=== PATIENT | male | born 1945 | race Caucasian/White ===

== ENCOUNTER 2022-02-17 04:18 | Inpatient (IN) | payer MEDICARE, OTHER ==
[2022-02-17] MEDS ORDERED: Boostrix 0.5 ML (Tdap) VIAL ONE (04:28)
[2022-02-17] MEDS ORDERED: CEFAZOLIN 1 GM VIAL ONE (04:28)
[2022-02-17] MEDS ORDERED: CEFAZOLIN 2 GM VIAL ONE (04:35)
[2022-02-17 06:01] LABS: #Basophils 0.1 thou/uL (0.0-0.2); #Eosinphils 0.2 thou/uL (0.0-0.7); #Lymphocytes 2.3 thou/uL (1.20-3.40); #Monocytes 1.3 thou/uL (0.11-0.59); #Neutrophils 8.5 thou/uL (1.40-6.50); %Basophils 0.8 % (0.0-1.0); %Eosinophils 1.7 % (0.0-10.0); %Lymphocytes 18.5 % (21.0-51.0); %Monocytes 10.4 % (0.0-10.0); %Neutrophils 68.6 % (42.0-75.0); Mean Corpuscular HGB CONC 31.2 g/dL (32.0-36.0); Mean Corpuscular Hemoglobin 32.7 pg (27.0-31.0); Mean Platelet Volume 9.6 fL (7.4-10.4); Platelet Count 232 thou/uL (130-400); RBC Distribution Width 16.8 % (11.5-14.5); Red Blood Cell (RBC) Count 5.18 mill/uL (4.70-6.10); White Blood Cell (WBC) Count 12.4 thou/uL (4.8-10.8)
[2022-02-17] MEDS ORDERED: Vancomycin 1 GM/200 ML BAG ONE (06:08)
[2022-02-17 06:10] LABS: INR-International Normal Ratio 1.3; Prothrombin Time 16.1 sec (12.0-14.7)
[2022-02-17] MEDS ORDERED: Ondansetron ODT 4 MG TAB PO PRN (06:10)
[2022-02-17] MEDS ORDERED: Dextrose 50% Abboject 50 ML SYRINGE SLOW IVP PRN (06:10)
[2022-02-17] MEDS ORDERED: Ondansetron PF 4 MG/2 ML Vial IVP PRN (06:10)
[2022-02-17] MEDS ORDERED: Dextrose 5% in Water 1,000 ML IV PRN (06:10)
[2022-02-17 06:11] LABS: PTT 30.3 sec (22.9-36.1)
[2022-02-17 06:27] LABS: Acetaminophen Less than 10.0 mcg/mL (10.0-30.0); Alcohol Less than 10 mg/dL (Less than 10); CK (CPK) 23 U/L (30-200); Salicylate Less than 8.0 mg/dL (15.0-30.0)
[2022-02-17 06:35] LABS: ALT (SGPT) 43 U/L (8-55); AST (SGOT) 66 U/L (5-34); Albumin 1.9 g/dL (3.4-4.8); Alkaline Phosphatase 760 U/L (40-110); Anion Gap 19 mmol/L (10-20); BUN (Urea Nitrogen) 55 mg/dL (8.4-25.7); Bilirubin, Total 1.7 mg/dL (0.2-1.2); Calc. Creatinine Clearance 0 mL/min (70-130); Calcium 8.4 mg/dL (7.8-10.44); Carbon Dioxide 15 mmol/L (23-31); Chloride 104 mmol/L (98-107); Estimated GFR 31; Globulin 2.3 g/dL (2.4-3.5); Glucose 85 mg/dL (83-110); Potassium 4.7 mmol/L (3.5-5.1); Protein, Total 4.2 g/dL (5.8-8.1); Sodium 133 mmol/L (136-145)
[2022-02-17 06:46] LABS: CKMB 2.4 ng/mL (0-6.6)
[2022-02-17] MEDS ORDERED: NOREPINEPHRINE 8 MG/250 ML-D5W 250 ML ONE (06:51)
[2022-02-17 06:53] LABS: Bacteria/HPF None Seen HPF (None Seen); Bilirubin 1+ (Negative); Blood, Urine 1+ (Negative); Clarity Clear (Clear); Glucose, Urine (Dipstick) Normal (Negative); Ketone, Urine Negative (Negative); Leukocyte Negative Leu/uL (Negative); Nitrite Negative (Negative); Protein, Urine (Dipstick) 300 mg/dL (Neg-Trace); RBC/HPF 0-3 HPF (0-3); Specific Gravity, Urine 1.022 (1.002-1.036); Squamous Epithelial 0-3 HPF (0-3); Urobilinogen Normal mg/dL (Less than 2)
[2022-02-17 06:59] LABS: Amphetamine Not Detected (NotDetected); Barbiturates Screen Not Detected (NotDetected); Benzodiazepine Screen Not Detected (NotDetected); Cocaine Metabolite Screen Not Detected (NotDetected); Methadone Not Detected (NotDetected); Methamphetamine Not Detected (NotDetected); Opiate Screen Not Detected (NotDetected); Oxycodone Screen Not Detected (NotDetected); Phencyclidine (PCP) Not Detected (NotDetected); THC/Cannabinoid Screen Not Detected (NotDetected); Tricyclic Screen Not Detected (NotDetected)
[2022-02-17] MEDS ORDERED: Ondansetron PF 4 MG/2 ML Vial ONE (07:11)
[2022-02-17 07:21] LABS: SARS-CoV-2 NAA Rapid Test Not Detected (NotDetected)
[2022-02-17] MEDS ORDERED: Fentanyl 100 MCG/2 ML VIAL SLOW IVP PRN (07:22)
[2022-02-17 07:36] LABS: Magnesium 2.1 mg/dL (1.6-2.6); Phosphorus 3.5 mg/dL (2.3-4.7)
[2022-02-17] MEDS ORDERED: Iopamidol 370 76% 100 ML VIAL ONE (08:34)
[2022-02-17] MEDS: Sodium Chloride 0.9% 1,000 ML IV SCH ×3 (08:40→20:50)
[2022-02-17 08:50] LABS: Lactic Acid 2.2 mmol/L (0.5-2.2)
[2022-02-17] MEDS ORDERED: Famotidine/PF 20 mg/2ml Vial SLOW IVP SCH (09:00)
[2022-02-17] MEDS ORDERED: fentaNYL Citrate/PF 100 MCG/2 ML SYRINGE ONE (11:12)
[2022-02-17] MEDS ORDERED: SUGAMMADEX SODIUM 200 MG/2 ML VIAL ONE ×2 (11:18→11:21)
[2022-02-17] MEDS ORDERED: Mannitol 12.5 GM/50 ML ONE (11:22)
[2022-02-17 11:32] LABS: Troponin I 0.122 ng/mL (< 0.028)
[2022-02-17] MEDS ORDERED: Succinylcholine 200 MG/10 ml SYRINGE FS ONE (11:42)
[2022-02-17] MEDS ORDERED: Rocuronium Bromide 10 MG/ML (10ML VIAL) ONE (11:42)
[2022-02-17] MEDS ORDERED: Lidocaine 1% PF 5 ML VIAL ONE (11:42)
[2022-02-17] MEDS ORDERED: Phenylephrine 10 MG/ML VIAL ONE (11:42)
[2022-02-17] MEDS ORDERED: PROPOFOL 200 MG/20 ML VIAL ONE (11:42)
[2022-02-17] MEDS ORDERED: Promethazine HCl 25 MG/ML VIAL IVPB PRN (12:22)
[2022-02-17] MEDS ORDERED: PACU-Morphine 4MG/ML VIAL SLOW IVP PRN (12:22)
[2022-02-17] MEDS ORDERED: Promethazine HCl 25 MG/ML VIAL IM PRN (12:22)
[2022-02-17] MEDS: Hydrocortisone Sod Succ/PF 100 mg/2 ml Vial IVP SCH ×3 (13:37→23:23)
[2022-02-17] MEDS: CEFAZOLIN 2 GM in Sodium Chloride 0.9% 100 ML IVPB SCH ×2 (13:42→20:46)
[2022-02-17] MEDS: NOREPINEPHRINE 8 MG/250 ML-D5W 250 ML IVPB SCH (15:47)
[2022-02-18] MEDS: NOREPINEPHRINE 8 MG/250 ML-D5W 250 ML IVPB SCH ×2 (01:36→22:29)
[2022-02-18 04:57] LABS: INR-International Normal Ratio 1.7; PTT 39.1 sec (22.9-36.1); Prothrombin Time 20.5 sec (12.0-14.7)
[2022-02-18 05:00] LABS: #Lymphocytes 0.4 thou/uL (1.20-3.40); #Monocytes 0.6 thou/uL (0.11-0.59); %Basophils 0.2 % (0.0-1.0); %Eosinophils 0.2 % (0.0-10.0); %Lymphocytes 2.7 % (21.0-51.0); %Monocytes 3.5 % (0.0-10.0); %Neutrophils 93.4 % (42.0-75.0); Hemoglobin 13.4 g/dL (14.0-18.0); Mean Corpuscular HGB CONC 31.8 g/dL (32.0-36.0); Mean Corpuscular Hemoglobin 33.1 pg (27.0-31.0); Mean Platelet Volume 9.4 fL (7.4-10.4); Platelet Count 227 thou/uL (130-400); RBC Distribution Width 16.4 % (11.5-14.5); Red Blood Cell (RBC) Count 4.07 mill/uL (4.70-6.10)
[2022-02-18 05:08] LABS: Anion Gap 16 mmol/L (10-20); BUN (Urea Nitrogen) 53 mg/dL (8.4-25.7); Calc. Creatinine Clearance 32 mL/min (70-130); Calcium 7.9 mg/dL (7.8-10.44); Carbon Dioxide 13 mmol/L (23-31); Chloride 108 mmol/L (98-107); Estimated GFR 28; Glucose 167 mg/dL (83-110); Potassium 4.5 mmol/L (3.5-5.1); Sodium 132 mmol/L (136-145)
[2022-02-18 05:29] LABS: Phosphorus 4.3 mg/dL (2.3-4.7)
[2022-02-18] MEDS: Hydrocortisone Sod Succ/PF 100 mg/2 ml Vial IVP SCH ×3 (05:37→17:43)
[2022-02-18] MEDS: CEFAZOLIN 2 GM in Sodium Chloride 0.9% 100 ML IVPB SCH ×3 (05:37→20:57)
[2022-02-18] MEDS: Sodium Chloride 0.9% 1,000 ML IV SCH (05:38)
[2022-02-18] MEDS ORDERED: Furosemide 40 MG/4 ML VIAL SLOW IVP SCH (08:30)
[2022-02-18] MEDS: Midodrine HCl 5 MG TAB PO SCH ×3 (08:55→20:58)
[2022-02-18] MEDS: Famotidine 20 MG TAB PO SCH (08:55)
[2022-02-18] MEDS ORDERED: Famotidine/PF 20 mg/2ml Vial SLOW IVP SCH (09:00)
[2022-02-18] MEDS ORDERED: Spironolactone 25 MG TAB PO SCH (09:00)
[2022-02-18] MEDS ORDERED: Calcium Chloride 13.6 MEQ in Sodium Chloride 0.9% 100 ML IVPB SCH (14:00)
[2022-02-18] MEDS ORDERED: Sodium Bicarb 50 MEQ/50 ML Abboject 8.4% SYRINGE IVP SCH ×2 (14:00→16:00)
[2022-02-19] MEDS: Hydrocortisone Sod Succ/PF 100 mg/2 ml Vial IVP SCH ×5 (00:10→23:08)
[2022-02-19 05:16] LABS: ALT (SGPT) Less than 7 U/L (8-55); AST (SGOT) 38 U/L (5-34); Albumin 2.7 g/dL (3.4-4.8); Alkaline Phosphatase 450 U/L (40-110); Anion Gap 15 mmol/L (10-20); BUN (Urea Nitrogen) 59 mg/dL (8.4-25.7); Bilirubin, Total 0.9 mg/dL (0.2-1.2); Calc. Creatinine Clearance 0 mL/min (70-130); Calcium 8.3 mg/dL (7.8-10.44); Carbon Dioxide 16 mmol/L (23-31); Chloride 108 mmol/L (98-107); Estimated GFR 19; Globulin 1.8 g/dL (2.4-3.5); Glucose 114 mg/dL (83-110); Magnesium 2.1 mg/dL (1.6-2.6); Potassium 4.3 mmol/L (3.5-5.1); Protein, Total 4.5 g/dL (5.8-8.1); Sodium 135 mmol/L (136-145)
[2022-02-19] MEDS: CEFAZOLIN 2 GM in Sodium Chloride 0.9% 100 ML IVPB SCH (05:34)
[2022-02-19 05:43] LABS: Band 12 % (5-11); Lymphocytes 2 % (21-51); MDiff Complete? YES; Mean Corpuscular HGB CONC 32.2 g/dL (32.0-36.0); Mean Corpuscular Hemoglobin 33.7 pg (27.0-31.0); Mean Platelet Volume 9.5 fL (7.4-10.4); Monocytes 4 % (0-10); Neutrophil 82 % (42-75); Platelet Count 222 thou/uL (130-400); RBC Distribution Width 16.5 % (11.5-14.5); Red Blood Cell (RBC) Count 3.85 mill/uL (4.70-6.10); White Blood Cell (WBC) Count 23.2 thou/uL (4.8-10.8)
[2022-02-19] MEDS: Midodrine HCl 5 MG TAB PO SCH ×3 (09:20→22:19)
[2022-02-19] MEDS: Famotidine 20 MG TAB PO SCH (09:20)
[2022-02-19] MEDS: Sodium Chloride 0.9% 1,000 ML IV SCH ×2 (14:42→23:06)
[2022-02-19] MEDS: Scopolamine 1.5 mg/72 hour Patch TD SCH (19:47)
[2022-02-19] MEDS ORDERED: NOREPINEPHRINE 8 MG/250 ML-D5W 250 ML IVPB SCH (21:45)
[2022-02-20 04:52] LABS: #Lymphocytes 0.5 thou/uL (1.20-3.40); #Monocytes 1.2 thou/uL (0.11-0.59); #Neutrophils 18.6 thou/uL (1.40-6.50); %Eosinophils 0.2 % (0.0-10.0); %Lymphocytes 2.4 % (21.0-51.0); %Monocytes 5.8 % (0.0-10.0); %Neutrophils 91.7 % (42.0-75.0); Hemoglobin 13.2 g/dL (14.0-18.0); Mean Corpuscular HGB CONC 31.9 g/dL (32.0-36.0); Mean Corpuscular Hemoglobin 32.8 pg (27.0-31.0); Mean Platelet Volume 10.1 fL (7.4-10.4); Platelet Count 226 thou/uL (130-400); Red Blood Cell (RBC) Count 4.02 mill/uL (4.70-6.10); White Blood Cell (WBC) Count 20.3 thou/uL (4.8-10.8)
[2022-02-20] MEDS: Midodrine HCl 5 MG TAB PO SCH ×3 (05:00→21:16)
[2022-02-20] MEDS: Hydrocortisone Sod Succ/PF 100 mg/2 ml Vial IVP SCH ×3 (05:00→17:45)
[2022-02-20 05:13] LABS: Anion Gap 16 mmol/L (10-20); BUN (Urea Nitrogen) 65 mg/dL (8.4-25.7); Calc. Creatinine Clearance 23 mL/min (70-130); Calcium 8.3 mg/dL (7.8-10.44); Carbon Dioxide 14 mmol/L (23-31); Chloride 108 mmol/L (98-107); Estimated GFR 17; Glucose 98 mg/dL (83-110); Magnesium 2.2 mg/dL (1.6-2.6); Phosphorus 4.9 mg/dL (2.3-4.7); Potassium 4.4 mmol/L (3.5-5.1); Sodium 134 mmol/L (136-145)
[2022-02-20] MEDS ORDERED: SODIUM BICARBONATE IV SCH (07:45)
[2022-02-20] MEDS ORDERED: DEXTROSE 5% IV SCH (07:45)
[2022-02-20] MEDS ORDERED: WATER IV SCH (07:45)
[2022-02-20] MEDS ORDERED: Sodium Chloride 0.9% 500 ML IV SCH (08:00)
[2022-02-20] MEDS: Sodium Bicarbonate 150 MEQ in Dextrose 5% in Water 1,000 ML IV SCH ×2 (08:58→17:46)
[2022-02-20] MEDS: Famotidine 20 MG TAB PO SCH (08:59)
[2022-02-20 14:34] LABS: ALT (SGPT) Less than 7 U/L (8-55); AST (SGOT) 51 U/L (5-34); Albumin 2.5 g/dL (3.4-4.8); Alkaline Phosphatase 417 U/L (40-110); Anion Gap 17 mmol/L (10-20); BUN (Urea Nitrogen) 70 mg/dL (8.4-25.7); Bilirubin, Total 0.9 mg/dL (0.2-1.2); Calc. Creatinine Clearance 22 mL/min (70-130); Calcium 7.8 mg/dL (7.8-10.44); Carbon Dioxide 13 mmol/L (23-31); Chloride 110 mmol/L (98-107); Estimated GFR 17; Glucose 108 mg/dL (83-110); Potassium 4.7 mmol/L (3.5-5.1); Protein, Total 4.5 g/dL (5.8-8.1); Sodium 135 mmol/L (136-145)
[2022-02-20] MEDS: Sodium Bicarb 50 MEQ/50 ML Abboject 8.4% SYRINGE IVP SCH ×2 (15:24→15:26)
[2022-02-21] MEDS: Hydrocortisone Sod Succ/PF 100 mg/2 ml Vial IVP SCH ×6 (00:20→23:35)
[2022-02-21 04:25] LABS: #Lymphocytes 0.5 thou/uL (1.20-3.40); #Monocytes 1.7 thou/uL (0.11-0.59); #Neutrophils 15.5 thou/uL (1.40-6.50); %Basophils 0.1 % (0.0-1.0); %Eosinophils 0.1 % (0.0-10.0); %Lymphocytes 2.8 % (21.0-51.0); %Monocytes 9.5 % (0.0-10.0); %Neutrophils 87.5 % (42.0-75.0); Hemoglobin 13.7 g/dL (14.0-18.0); Mean Corpuscular HGB CONC 32.8 g/dL (32.0-36.0); Mean Corpuscular Hemoglobin 33.2 pg (27.0-31.0); Platelet Count 227 thou/uL (130-400); RBC Distribution Width 16.6 % (11.5-14.5); Red Blood Cell (RBC) Count 4.11 mill/uL (4.70-6.10); White Blood Cell (WBC) Count 17.8 thou/uL (4.8-10.8)
[2022-02-21 04:44] LABS: Anion Gap 15 mmol/L (10-20); BUN (Urea Nitrogen) 72 mg/dL (8.4-25.7); Calc. Creatinine Clearance 22 mL/min (70-130); Calcium 7.8 mg/dL (7.8-10.44); Carbon Dioxide 19 mmol/L (23-31); Chloride 107 mmol/L (98-107); Estimated GFR 17; Glucose 102 mg/dL (83-110); Magnesium 2.1 mg/dL (1.6-2.6); Phosphorus 4.7 mg/dL (2.3-4.7); Potassium 4.5 mmol/L (3.5-5.1); Sodium 136 mmol/L (136-145)
[2022-02-21] MEDS: Sodium Chloride 0.9% 1,000 ML IV SCH (05:33)
[2022-02-21] MEDS: Midodrine HCl 5 MG TAB PO SCH ×3 (06:22→21:45)
[2022-02-21] MEDS: Famotidine 20 MG TAB PO SCH (10:54)
[2022-02-21] MEDS: Sodium Bicarbonate 150 MEQ in Dextrose 5% in Water 1,000 ML IV SCH (14:53)
[2022-02-22] MEDS: Sodium Bicarbonate 150 MEQ in Dextrose 5% in Water 1,000 ML IV SCH (03:56)
[2022-02-22 04:37] LABS: ALT (SGPT) Less than 7 U/L (8-55); AST (SGOT) 32 U/L (5-34); Albumin 2.2 g/dL (3.4-4.8); Alkaline Phosphatase 391 U/L (40-110); Anion Gap 15 mmol/L (10-20); BUN (Urea Nitrogen) 77 mg/dL (8.4-25.7); Bilirubin, Total 1.3 mg/dL (0.2-1.2); Calc. Creatinine Clearance 22 mL/min (70-130); Calcium 7.7 mg/dL (7.8-10.44); Carbon Dioxide 23 mmol/L (23-31); Chloride 104 mmol/L (98-107); Estimated GFR 16; Globulin 1.7 g/dL (2.4-3.5); Glucose 109 mg/dL (83-110); Magnesium 2.1 mg/dL (1.6-2.6); Phosphorus 4.6 mg/dL (2.3-4.7); Potassium 3.8 mmol/L (3.5-5.1); Protein, Total 3.9 g/dL (5.8-8.1); Sodium 138 mmol/L (136-145)
[2022-02-22 04:48] LABS: Band 22 % (5-11); Hemoglobin 15.6 g/dL (14.0-18.0); Lymphocytes 5 % (21-51); MDiff Complete? YES; Mean Corpuscular HGB CONC 33.5 g/dL (32.0-36.0); Mean Corpuscular Hemoglobin 34.1 pg (27.0-31.0); Mean Platelet Volume 9.7 fL (7.4-10.4); Monocytes 16 % (0-10); Neutrophil 57 % (42-75); Nucleated RBC 2 % (0); Platelet Count 248 thou/uL (130-400); RBC Distribution Width 16.7 % (11.5-14.5); Red Blood Cell (RBC) Count 4.56 mill/uL (4.70-6.10); White Blood Cell (WBC) Count 10.6 thou/uL (4.8-10.8)
[2022-02-22] MEDS: Midodrine HCl 5 MG TAB PO SCH ×2 (05:57→13:34)
[2022-02-22] MEDS: Hydrocortisone Sod Succ/PF 100 mg/2 ml Vial IVP SCH ×3 (05:57→16:46)
[2022-02-22] MEDS: Famotidine 20 MG TAB PO SCH (09:50)
[2022-02-23] MEDS ORDERED: Loperamide HCl 2 MG CAP PO SCH ×2 (00:30→10:30)
[2022-02-23] MEDS: Hydrocortisone Sod Succ/PF 100 mg/2 ml Vial IVP SCH ×3 (00:31→18:45)
[2022-02-23] MEDS: Midodrine HCl 5 MG TAB PO SCH ×4 (00:31→21:34)
[2022-02-23] MEDS ORDERED: Scopolamine 1.5 mg/72 hour Patch TD SCH (02:00)
[2022-02-23 05:54] LABS: Band 28 % (5-11); Hemoglobin 14.9 g/dL (14.0-18.0); Lymphocytes 12 % (21-51); MDiff Complete? YES; Mean Corpuscular HGB CONC 30.7 g/dL (32.0-36.0); Mean Platelet Volume 9.6 fL (7.4-10.4); Monocytes 16 % (0-10); Myelocyte 1 % (0-0); Neutrophil 43 % (42-75); Platelet Count 273 thou/uL (130-400); RBC Distribution Width 17.1 % (11.5-14.5); Red Blood Cell (RBC) Count 4.83 mill/uL (4.70-6.10); Target Cells SLIGHT = 2-5 cells (100X) (0-1/hpf); White Blood Cell (WBC) Count 11.4 thou/uL (4.8-10.8)
[2022-02-23 06:10] LABS: Anion Gap 18 mmol/L (10-20); BUN (Urea Nitrogen) 85 mg/dL (8.4-25.7); Calc. Creatinine Clearance 21 mL/min (70-130); Calcium 7.8 mg/dL (7.8-10.44); Carbon Dioxide 21 mmol/L (23-31); Chloride 104 mmol/L (98-107); Estimated GFR 15; Glucose 78 mg/dL (83-110); Magnesium 2.1 mg/dL (1.6-2.6); Potassium 3.9 mmol/L (3.5-5.1); Sodium 139 mmol/L (136-145)
[2022-02-23] MEDS ORDERED: Tamsulosin HCl 0.4 MG CAP PO SCH ×2 (09:00→21:00)
[2022-02-23] MEDS: Scopolamine 1.5 mg/72 hour Patch TD SCH (10:22)
[2022-02-23] MEDS: Famotidine 20 MG TAB PO SCH (10:24)
[2022-02-23] MEDS ORDERED: Albumin 25% 25 GM/100 ML BOT IVPB SCH (16:00)
[2022-02-23] MEDS: Sodium Chloride 0.9% 500 ML IV SCH (21:37)
[2022-02-24] MEDS: Sodium Chloride 0.9% 500 ML IV SCH (01:59)
[2022-02-24] MEDS: Hydrocortisone Sod Succ/PF 100 mg/2 ml Vial IVP SCH (06:29)
[2022-02-24] MEDS: Midodrine HCl 5 MG TAB PO SCH ×3 (06:29→23:00)
[2022-02-24 06:43] LABS: Anion Gap 17 mmol/L (10-20); BUN (Urea Nitrogen) 84 mg/dL (8.4-25.7); Calc. Creatinine Clearance 21 mL/min (70-130); Calcium 7.7 mg/dL (7.8-10.44); Carbon Dioxide 18 mmol/L (23-31); Chloride 104 mmol/L (98-107); Estimated GFR 15; Glucose 101 mg/dL (83-110); Potassium 3.4 mmol/L (3.5-5.1); Sodium 136 mmol/L (136-145)
[2022-02-24] MEDS: Potassium Chloride 20 MEQ TAB PO SCH ×2 (11:08→21:00)
[2022-02-24] MEDS ORDERED: Tamsulosin HCl 0.4 MG CAP PO SCH (21:00)
[2022-02-24] MEDS ORDERED: Ondansetron PF 4 MG/2 ML Vial IVP PRN (21:55)
[2022-02-24] MEDS ORDERED: Dextrose 5% in Water 1,000 ML IV PRN (21:55)
[2022-02-24] MEDS ORDERED: Dextrose 50% Abboject 50 ML SYRINGE SLOW IVP PRN (21:55)
[2022-02-24] MEDS ORDERED: Ondansetron ODT 4 MG TAB PO PRN (21:55)
[2022-02-24] MEDS: Tamsulosin HCl 0.4 MG CAP PO SCH (23:01)
[2022-02-25 06:01] LABS: Anion Gap 17 mmol/L (10-20); BUN (Urea Nitrogen) 84 mg/dL (8.4-25.7); Calc. Creatinine Clearance 19 mL/min (70-130); Calcium 7.6 mg/dL (7.8-10.44); Carbon Dioxide 19 mmol/L (23-31); Chloride 105 mmol/L (98-107); Estimated GFR 13; Glucose 92 mg/dL (83-110); Phosphorus 4.5 mg/dL (2.3-4.7); Potassium 3.8 mmol/L (3.5-5.1); Sodium 137 mmol/L (136-145)
[2022-02-25] MEDS: Midodrine HCl 5 MG TAB PO SCH ×3 (06:06→21:12)
[2022-02-25] MEDS ORDERED: Sodium Chloride 0.9% 1,000 ML IV SCH ×2 (06:30→07:41)
[2022-02-25] MEDS ORDERED: Dextrose 5% in Water 500 ML IV PRN (09:46)
[2022-02-25 16:15] VITALS: BMI 30.2
[2022-02-25] MEDS: Tamsulosin HCl 0.4 MG CAP PO SCH (21:12)
[2022-02-26] MEDS: Midodrine HCl 5 MG TAB PO SCH ×3 (05:04→21:38)
[2022-02-26 07:51] LABS: Anion Gap 21 mmol/L (10-20); BUN (Urea Nitrogen) 85 mg/dL (8.4-25.7); Calc. Creatinine Clearance 19 mL/min (70-130); Calcium 7.8 mg/dL (7.8-10.44); Carbon Dioxide 15 mmol/L (23-31); Chloride 103 mmol/L (98-107); Estimated GFR 13; Potassium 4.2 mmol/L (3.5-5.1); Sodium 135 mmol/L (136-145)
[2022-02-26 07:56] LABS: Glucose 52 mg/dL (83-110)
[2022-02-26] MEDS ORDERED: Sodium Bicarbonate 150 MEQ in Dextrose 5% in Water 850 ML IV SCH (09:15)
[2022-02-26 09:31] LABS: Actual Bicarbonate (HCO3v) 19 mEq/L (22-28); Base Excess -3.6 mEq/L (-2.0 to +3.0); Calcium, Ionized (venous) 1.03 mmol/L (1.16-1.32); Chloride (VBG) 103 mmol/L (98-106); Potassium (VBG) 3.86 mmol/L (3.70-5.30); Sodium 131.6 mmol/L (133-146); pH (venous) 7.43 (7.32-7.43)
[2022-02-26] MEDS ORDERED: Lidocaine 1% MPF 2 ML VIAL ONE (14:49)
[2022-02-26] MEDS ORDERED: Sodium Bicarbonate 2.5 MEQ/5 ML VIAL ONE (14:49)
[2022-02-26 17:56] LABS: PTT 39.4 sec (22.9-36.1); Prothrombin Time 23.1 sec (12.0-14.7)
[2022-02-26] MEDS: Tamsulosin HCl 0.4 MG CAP PO SCH (21:38)
[2022-02-27] MEDS: Midodrine HCl 5 MG TAB PO SCH ×4 (05:09→21:16)
[2022-02-27 06:41] LABS: Anion Gap 18 mmol/L (10-20); BUN (Urea Nitrogen) 90 mg/dL (8.4-25.7); Calc. Creatinine Clearance 19 mL/min (70-130); Calcium 7.9 mg/dL (7.8-10.44); Carbon Dioxide 20 mmol/L (23-31); Chloride 102 mmol/L (98-107); Estimated GFR 13; Glucose 67 mg/dL (83-110); Magnesium 1.8 mg/dL (1.6-2.6); Phosphorus 3.8 mg/dL (2.3-4.7); Potassium 3.8 mmol/L (3.5-5.1); Sodium 136 mmol/L (136-145)
[2022-02-27 06:50] LABS: Anisocytosis SLIGHT = 6-15 cells (100X) (0-5/hpf); Band 22 % (5-11); Hemoglobin 13.9 g/dL (14.0-18.0); Lymphocytes 4 % (21-51); MDiff Complete? YES; Macrocytosis MODERATE=16-30 cells (100X) (0-5/hpf); Mean Corpuscular HGB CONC 32.5 g/dL (32.0-36.0); Mean Corpuscular Hemoglobin 32.9 pg (27.0-31.0); Mean Platelet Volume 9.2 fL (7.4-10.4); Metamyelocyte 1 % (0-0); Monocytes 1 % (0-10); Neutrophil 72 % (42-75); Ovalocytes SLIGHT = 2-5 cells (100X) (0-1/hpf); Platelet Count 257 thou/uL (130-400); Platelet Morphology Comment Appears Adequate; RBC Distribution Width 17.3 % (11.5-14.5); Red Blood Cell (RBC) Count 4.21 mill/uL (4.70-6.10); Target Cells MODERATE= 6-15 cells (100X) (0-1/hpf); Tear Drops SLIGHT = 2-5 cells (100X) (0-1/hpf); White Blood Cell (WBC) Count 31.6 thou/uL (4.8-10.8)
[2022-02-27] MEDS: Albumin 25% 25 GM/100 ML BOT IVPB SCH (16:58)
[2022-02-27] MEDS: Tamsulosin HCl 0.4 MG CAP PO SCH (21:16)
[2022-02-28] MEDS: Midodrine HCl 5 MG TAB PO SCH ×3 (05:03→21:44)
[2022-02-28 06:43] LABS: Anion Gap 20 mmol/L (10-20); BUN (Urea Nitrogen) 94 mg/dL (8.4-25.7); Calc. Creatinine Clearance 17 mL/min (70-130); Calcium 7.9 mg/dL (7.8-10.44); Carbon Dioxide 17 mmol/L (23-31); Chloride 102 mmol/L (98-107); Estimated GFR 11; Glucose 79 mg/dL (83-110); Potassium 4.3 mmol/L (3.5-5.1); Sodium 135 mmol/L (136-145)
[2022-02-28 06:50] LABS: Band 14 % (5-11); Hemoglobin 14.7 g/dL (14.0-18.0); Lymphocytes 15 % (21-51); MDiff Complete? YES; Macrocytosis SLIGHT = 6-15 cells (100X) (0-5/hpf); Mean Corpuscular HGB CONC 31.7 g/dL (32.0-36.0); Mean Corpuscular Hemoglobin 32.6 pg (27.0-31.0); Mean Platelet Volume 9.4 fL (7.4-10.4); Monocytes 3 % (0-10); Neutrophil 68 % (42-75); Platelet Count 223 thou/uL (130-400); Platelet Morphology Comment Appears Adequate; RBC Distribution Width 17.6 % (11.5-14.5); White Blood Cell (WBC) Count 29.8 thou/uL (4.8-10.8)
[2022-02-28] MEDS: Albumin 25% 25 GM/100 ML BOT IVPB SCH (15:56)
[2022-02-28] MEDS ORDERED: Morphine 2 MG/ML VIAL SLOW IVP PRN (19:32)
[2022-02-28] MEDS: Tamsulosin HCl 0.4 MG CAP PO SCH (21:44)
[2022-03-01] MEDS: Midodrine HCl 5 MG TAB PO SCH ×3 (05:09→21:41)
[2022-03-01 05:49] LABS: Anion Gap 22 mmol/L (10-20); BUN (Urea Nitrogen) 103 mg/dL (8.4-25.7); Calc. Creatinine Clearance 16 mL/min (70-130); Calcium 8.1 mg/dL (7.8-10.44); Carbon Dioxide 18 mmol/L (23-31); Chloride 101 mmol/L (98-107); Estimated GFR 10; Glucose 79 mg/dL (83-110); Magnesium 1.9 mg/dL (1.6-2.6); Phosphorus 5.5 mg/dL (2.3-4.7); Potassium 4.2 mmol/L (3.5-5.1); Sodium 137 mmol/L (136-145)
[2022-03-01] MEDS ORDERED: Megestrol Acetate 800 MG/20 ML UDCUP PO SCH (09:00)
[2022-03-01] MEDS ORDERED: Scopolamine 1.5 mg/72 hour Patch TD SCH (15:30)
[2022-03-01] MEDS: Tamsulosin HCl 0.4 MG CAP PO SCH (21:41)
[2022-03-01] MEDS ORDERED: Lorazepam (BATCHED) 2 MG/ML SYR SLOW IVP PRN (23:56)
[2022-03-02 05:58] LABS: Anion Gap 23 mmol/L (10-20); BUN (Urea Nitrogen) 107 mg/dL (8.4-25.7); Calc. Creatinine Clearance 15 mL/min (70-130); Calcium 7.8 mg/dL (7.8-10.44); Carbon Dioxide 16 mmol/L (23-31); Chloride 103 mmol/L (98-107); Estimated GFR 9; Potassium 4.7 mmol/L (3.5-5.1); Sodium 137 mmol/L (136-145)
[2022-03-02 06:10] LABS: Glucose 57 mg/dL (83-110)
[2022-03-02] MEDS: Midodrine HCl 5 MG TAB PO SCH ×2 (06:10→15:49)
[2022-03-02] MEDS ORDERED: Dextrose 50% Abboject 50 ML SYRINGE SLOW IVP PRN (06:15)
[2022-03-02] MEDS ORDERED: Midazolam HCl 2 mg/2 ml Vial SLOW IVP PRN (08:44)
[2022-03-02] MEDS ORDERED: Lorazepam 0.5 MG TAB PO PRN (08:47)
[2022-03-02] MEDS ORDERED: Morphine 2 MG/ML VIAL SLOW IVP PRN (09:00)
[2022-03-02 16:24] VITALS: BP 69/36; TEMP 97.5
== END 2022-03-02 17:32 | disposition hospice, inpatient (51) | DRG 25 ==
LOC: ERS 04:18 → CCU 06:10 → IMCU/EMU 02-20 09:35 → SURG B 02-22 19:15 → UNDODISIN 02-24 15:59
PROVIDERS: ADMIT Student in an Organized Health Care Education/Training Program; ATTEND Surgery
PROC: 00C40ZZ Extirpation of Matter from Intracranial Subdural Space, Open Approach (ICD-10-PCS; principal; 2022-02-17)
PROC: 0W9G3ZZ Drainage of Peritoneal Cavity, Percutaneous Approach (ICD-10-PCS; 2022-02-19)
PROC: 0W9G3ZZ Drainage of Peritoneal Cavity, Percutaneous Approach (ICD-10-PCS; 2022-02-26)
DX: S06.5X9A Traumatic subdural hemorrhage with loss of consciousness of unspecified duration, initial encounter (principal); G93.5 Compression of brain; K76.7 Hepatorenal syndrome; E27.40 Unspecified adrenocortical insufficiency; N17.9 Acute kidney failure, unspecified; R18.8 Other ascites; N18.4 Chronic kidney disease, stage 4 (severe); E87.2 Acidosis; I12.0 Hypertensive chronic kidney disease with stage 5 chronic kidney disease or end stage renal disease; N18.5 Chronic kidney disease, stage 5; Z66 Do not resuscitate; Z20.822 Contact with and (suspected) exposure to COVID-19; R40.2312 Coma scale, best motor response, none, at arrival to emergency department; R40.2112 Coma scale, eyes open, never, at arrival to emergency department; R40.2212 Coma scale, best verbal response, none, at arrival to emergency department; W18.30XA Fall on same level, unspecified, initial encounter; K74.60 Unspecified cirrhosis of liver; N40.0 Benign prostatic hyperplasia without lower urinary tract symptoms; I95.9 Hypotension, unspecified; D72.829 Elevated white blood cell count, unspecified; D63.1 Anemia in chronic kidney disease; Z79.899 Other long term (current) drug therapy
CPT/HCPCS: 36415; 36416; 36556; 49083; 51702; 70450; 71045; 71260; 72125; 74177; 80048; 80053; 80306; 80307; 81003; 81015; 82040; 82533; 82550; 82553; 82805; 83605; 83735; 83880; 84100; 84484; 85025; 85610; 85730; 86850; 86900; 86901; 87040; 87086; 90715; 93005; 93306; 93970; 96374; 96375; G0390; J0690; J1165; J1610; J1720; J1940; J2060; J2150; J2370; J2405; J2704; J3370; J3490; J7030; J7050; J7070; J7999; P9045; P9047; Q9967; S0028; U0002; U0003; U0005